=== PATIENT | male | born 1955 | race Two or more races ===

== ENCOUNTER 2019-01-16 08:12 | Day surgery (SDC) | payer MEDICAID ==
[~2019-01-16] VITALS: Ht 175.3 cm; Wt 113.2 kg
[~2019-01-16 08:12] MED LIST: ALBU8.5H8 INH; BACL10TA PO; BECL7.3A INH; BUPR1FIL3 SL; ENAL2.5T40 PO; LIDOcaine 1% 30ml preserv. free vial ONE; RANI-388 PO; albuterol 2.5 MG/3 ML nebule NEB ONE; cefazolin/dext.iso 2gm/100 ML IV ONE; famotidine 20mg tablet PO ONE; meperidine/PF 25mg/ml syringe IV PRN; morphine 4 MG/ML inj SYRINge IV PRN; ondansetron/PF 4mg/2ml inj IV PRN; proCHLORperazine 10 MG/2 ml inj IV PRN; ringers solution, lacted 1,000 ML IV SCH
[2019-01-16 08:30] VITALS: BP 141/94
[2019-01-16 09:30] LABS: ISTAT CREATININE 0.9 mg/dL (0.8-1.3); ISTAT IONIZED CALCIUM 1.26 mmol/L (1.03-1.32); ISTAT K 4.3 mmol/L (3.5-5.1); POC BUN/CREATININE RATIO 14.4 (5.4-32.0)
[2019-01-16] MEDS ORDERED: BUPIVAcaine/PF 2.5mg/ml (0.25%) 10ml vial ONE (10:05)
[2019-01-16] MEDS ORDERED: fentaNYL/PF 50MCG/1 ML 2ML syringe ONE (10:10)
[2019-01-16] MEDS ORDERED: MIDAZolam 5mg/5ml vial ONE (10:11)
[2019-01-16] MEDS ORDERED: LIDOcaine 1% (10mg/ml) 2ml vial ONE (10:13)
[2019-01-16] MEDS ORDERED: ketorolac trometh. 30mg/ml inj. ONE (10:54)
[2019-01-16 11:00] VITALS: BP 157/87
--- NOTE | 2019-01-16 11:00 | NUR ---
Received from OR via [facility] , accompanied by Anesthesiologist RIDGE and report given by Anesthesiolgist. PATIENT WITH 20G PIV IN RIGHT UE RUNNING LR AT 100. DENIES PAIN LEFT WRIST DRESSING IS CDI. LORI. Addendum: 01/16/19 at 1106 by Yash Rodriguez RN, RN Amended: Links added.
[2019-01-16 11:10] VITALS: BP 127/79
[2019-01-16 11:20] VITALS: BP 130/82
--- NOTE | 2019-01-16 11:30 | NUR ---
ALL DC CRITERIA HAS BEEN MET. IV TAKEN OUT WITHOUT COMPLICATIONS. ALL INSTRUCTIONS COVERED AND ALL QUESTIONS ANSWERED. DRESSINGS CDI. OUT VIA WHEELCHAIR TO PERSONAL VEHICLE WHERE PATIENT WAS SECURED IN AND DRIVEN HOME BY FAMILY. Addendum: 01/16/19 at 1146 by Yash Rodriguez RN, RN Amended: Links added.
== END 2019-01-16 11:40 | disposition home or self-care (01) ==
LOC: PAS 08:12
PROVIDERS: ATTEND Orthopaedic Surgery Hand Surgery
DX: S63.592A Other specified sprain of left wrist, initial encounter (principal); J43.9 Emphysema, unspecified; I10 Essential (primary) hypertension; Z79.899 Other long term (current) drug therapy; K21.9 Gastro-esophageal reflux disease without esophagitis; Z98.890 Other specified postprocedural states; G89.29 Other chronic pain; Z86.19 Personal history of other infectious and parasitic diseases; X58.XXXA Exposure to other specified factors, initial encounter; Y93.89 Activity, other specified; Y92.89 Other specified places as the place of occurrence of the external cause; Y99.8 Other external cause status; Z86.11 Personal history of tuberculosis
CPT/HCPCS: 29846; 80047; J1885; J2001; J2250; J3010; J3490; J7120; A7000